=== PATIENT | male | born 1965 | race Two or more races ===

== ENCOUNTER 2020-05-23 11:38 | Emergency (ER) | payer SELFPAY ==
[~2020-05-23] VITALS: Ht 165.1 cm; Wt 65.8 kg
--- NOTE | 2020-05-23 11:56 | NUR ---
ED Nurse Note: patient walked in from home due to chills, fever, fatigue, headache x 6days. 100 temperature, other vss. nad noted.
[2020-05-23 11:58] VITALS: BP 103/66
--- NOTE | 2020-05-23 12:16 | NUR ---
HAND-OFF: Report given to colin blunt.
[2020-05-23] MEDS ORDERED: ZOFRAN4 MG ORAL (12:19)
[2020-05-23] MEDS ORDERED: TYLENOL EXTRA500 MG ORAL (12:19)
[2020-05-23 12:25] VITALS: BP 103/66
--- NOTE | 2020-05-23 12:25 | NUR ---
ER DISCHARGE NOTE: Patient is cleared to be discharged per ERMD, pt is aox4, on room air, with stable vital signs. pt was given dc and prescription instructions, pt was able to verbalize understanding, pt id band removed without complications. pt is able to ambulate with steady gait. pt took all belongings.
--- NOTE | 2020-05-23 12:26 | Emergency Room Report ---
History of Present Illness General Chief Complaint: General Complaint Source: Patient Present Illness HPI Disclaimer: Please note that this report is being documented using [employer] technology. This can lead to erroneous entry secondary to incorrect interpretation by the dictating instrument. HPI: 55-year-old male no medical history presents with flulike symptoms for 5 days. He reports body aches, fever, chills for the past 5 days. Occasional cough, no nausea no vomiting no diarrhea. Patient denies any sick contacts. He has not been tested for coronavirus. 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 COVID-19 Screening: Negative COVID-19 COVID-19 Testing Source: nasal Patient History Reviewed Nursing Documentation: PMH: Agreed; PSxH: Agreed Nursing Documentation-PMH Past Medical History: No Stated History Review of Systems All Other Systems: negative except mentioned in HPI Physical Exam Vital Signs Date Time Temp Pulse Resp B/P (MAP) Pulse Ox O2 Delivery O2 Flow Rate FiO2 05/23/20 11:44 100.0 97 18 103/66 (78) 94 Room Air Sp02 EP Interpretation: reviewed, normal General Appearance: well appearing, no apparent distress Head: normocephalic, atraumatic Eyes: bilateral eye PERRL, bilateral eye EOMI ENT: hearing grossly normal, moist mucus membranes Neck: full range of motion, supple Respiratory: lungs clear, normal breath sounds, no rhonchi, no respiratory distress, no retraction, no wheezing Cardiovascular #1: normal peripheral pulses, regular rate, rhythm, no murmur Gastrointestinal: non tender, soft, non-distended, no guarding Neurologic: alert, oriented x3, no focal defects Skin: normal color, warm/dry Medical Decision Making Diagnostic Impression: Primary Impression: Viral syndrome ER Course Patient presented with flulike symptoms. Body aches, fever, denies any nausea or vomiting or diarrhea. He does have intermittent coughing. His symptoms were consistent with COVID-19. He was in no distress. O2 saturation was around 95%. I will at this time I will treat patient for presumed COVID-19. Tylenol given in the ER. Will discharge with Tylenol and Zofran as needed for nausea and vomiting. Recommended home quarantine, I did refer him for outpatient testing. Stable for discharge. Given return precautions. Last Vital Signs Date Time Temp Pulse Resp B/P (MAP) Pulse Ox O2 Delivery O2 Flow Rate FiO2 05/23/20 11:58 97 18 Room Air 05/23/20 11:58 100.0 103/66 94 Status: unchanged Disposition: HOME, SELF-CARE Condition: Stable Scripts Ondansetron (Zofran) 4 Mg Tablet 4 MG ORAL Q8H PRN for Nausea & Vomiting, #20 TAB 0 Refills Prov: Dejan Ferro M.D. 05/23/20 Acetaminophen* (TYLENOL EXTRA STRENGTH*) 500 Mg Tablet 500 MG ORAL Q8H PRN for PRN pain/fever, #30 TAB 0 Refills Prov: Deajn Ferro M.D. 05/23/20 Patient Instructions: Viral Respiratory Infection, [id number] Additional Instructions: Please visit the following website to arrange outpatient testing through [facility] for free [email or web address] We are treating you for presumed covid-19. Please stay at home until you have not had a fever for 24 hours without the use of antifever medications, other symptoms have improved, and 10 days have passed since the onset of your initial symptoms. Please do not leave your home during this time except to seek urgent medical care. All of your close contacts should be quarantined at home at least 14 days since last contact with yourself. Dejan Ferro M.D. May 23, 2020 12:26
== END 2020-05-23 12:25 | disposition home or self-care (01) ==
LOC: EMR 12:11
DX: B34.9 Viral infection, unspecified (principal)
CPT/HCPCS: 99282